=== PATIENT | female | born 1960 | race Caucasian/White ===

== ENCOUNTER 2017-01-24 11:30 | Inpatient (IN) | payer BC ==
[2017-01-24 11:52] LABS: Prothrombin Time 13.2 SEC (12.0-14.7)
[2017-01-24 11:53] LABS: PTT 18.3 SEC (22.9-36.1)
[2017-01-24 12:02] LABS: ALT (SGPT) 483 U/L (8-55); AST (SGOT) 526 U/L (5-34); Alkaline Phosphatase 118 U/L (40-150); Anion Gap 21 mmol/L (10-20); BUN (Urea Nitrogen) 15 mg/dL (9.8-20.1); Bilirubin, Total 0.4 mg/dL (0.2-1.2); CK (CPK) 235 U/L (29-168); Calc. Creatinine Clearance 0 mL/min (70-130); Calcium 9.4 mg/dL (7.8-10.44); Carbon Dioxide 21 mmol/L (22-29); Chloride 102 mmol/L (98-107); Estimated GFR-MDRD 44; Globulin 2.5 g/dL (2.4-3.5); Lipase 38 U/L (8-78); Protein, Total 6.6 g/dL (6.0-8.3)
[2017-01-24 12:03] LABS: Troponin I 0.144 ng/mL (< 0.028)
[2017-01-24 12:15] LABS: Hematocrit 40.6 % (36.0-47.0); Mean Platelet Volume 8.9 fL (7.4-10.4); Red Blood Cell (RBC) Count 4.07 mill/uL (4.20-5.40)
[2017-01-24] MEDS ORDERED: Heparin 10,000 UNITS/ 10 ML VIAL SLOW IVP SCH (12:15)
[2017-01-24] MEDS ORDERED: Heparin 25,000 units/D5W 500 ML IV SCH (12:15)
[2017-01-24 12:29] LABS: Band 11 % (5-11); Neutrophil 85 % (42-75); Toxic Granulation SLIGHT
[2017-01-24] MEDS ORDERED: Enoxaparin Sodium 80 MG/0.8 ML SYRINGE ONE (12:29)
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
[2017-01-24 13:49] LABS: Bilirubin Negative (Negative); Blood, Urine Small (Negative); Glucose, Urine (Dipstick) Negative (Negative); Ketone, Urine Negative (Negative); Nitrite Negative (Negative); Protein, Urine (Dipstick) 100 mg/dL (Neg-Trace); Urobilinogen 0.2 mg/dL (0.2-1.0)
[2017-01-24 13:51] LABS: Bacteria/HPF None Seen HPF (None Seen); Hyaline Casts/LPF 0-3 HYALINE CAST LPF (0-3 Hyaline); RBC/HPF 0-3 HPF (0-3); Squamous Epithelial 0-3 HPF (0-3); WBC/HPF 0-3 HPF (0-3)
[2017-01-24 14:00] LABS: Amphetamine Not Detected (NotDetected); Methadone Not Detected (NotDetected); Methamphetamine Not Detected (NotDetected)
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
--- NOTE | 2017-01-24 14:04 | RAD ---
CHEST 1 VIEW: Date: 01/24/17 HISTORY: Chest pain. COMPARISON: None. FINDINGS: Lungs are clear. No pneumothorax or effusion. Cardiac silhouette and mediastinal contours are normal . IMPRESSION: 1. No acute intrathoracic abnormality. 2. Density projecting over the left shoulder joint may be outside of patient, less likely a fractur e. Shoulder radiographs may be helpful. POS: [facility]
[2017-01-24] MEDS ORDERED: Mag-Al 1200 mg/1200 mg/30 ML UDCUP PO PRN (14:13)
[2017-01-24] MEDS ORDERED: Loperamide HCl 2 MG CAP PO PRN (14:13)
[2017-01-24] MEDS ORDERED: Loratadine 10 MG TAB PO PRN (14:13)
[2017-01-24] MEDS ORDERED: Artificial Tears 18 DROP/0.9 ML EA EYE PRN (14:13)
[2017-01-24] MEDS ORDERED: Ondansetron ODT 4 MG TAB PO PRN (14:13)
[2017-01-24] MEDS ORDERED: Eucerin (Mineral Oil/Petrolatum,White) 30 gm Jar TOP PRN (14:13)
[2017-01-24] MEDS ORDERED: Acetaminophen 325 MG TAB PO PRN (14:13)
[2017-01-24] MEDS ORDERED: Ondansetron HCl/PF 4 MG/2 ML Vial IVP PRN (14:13)
[2017-01-24] MEDS ORDERED: Milk Of Magnesia 30 ML UDCUP PO PRN (14:13)
[2017-01-24] MEDS ORDERED: Nitroglycerin 0.4 MG TAB (25 Tab Bottle) SL PRN (14:13)
[2017-01-24] MEDS ORDERED: Senokot 8.6 MG TAB PO PRN (14:13)
[2017-01-24] MEDS ORDERED: Diabetic Tussin 200 MG/10 ML UDCUP PO PRN (14:13)
[2017-01-24] MEDS ORDERED: Sodium Chloride 0.65% Nasal 44 ML BOT EA NARE PRN (14:13)
[2017-01-24] MEDS ORDERED: Zolpidem Tartrate 5 MG TAB PO PRN (14:13)
[2017-01-24 15:30] VITALS: BMI 30.3
[2017-01-24 15:35] LABS: Troponin I 12.564 ng/mL (< 0.028)
--- NOTE | 2017-01-24 15:40 | ULT ---
ULTRASOUND ABDOMEN LIMITED: (RIGHT UPPER QUADRANT) 01/24/17 HISTORY: 56-year-old female with elevated LFTs. FINDINGS: Gallbladder: Surgically absent. Common duct: Dilated up to 8 mm. Liver: Parenchymal echogenicity is normal. There is probably intrahepatic biliary ductal dilation. Pancreas: Poorly visualized. Right kidney: No hydronephrosis. IMPRESSION: 1. Status post cholecystectomy. 2. Dilation of the biliary tree. This could be due to reservoir effect because of the status po st cholecystectomy. Common bile duct obstruction can also have this appearance. Recommend correlatio n with bilirubin levels. JOVANNY Calix POS: [facility]
--- NOTE | 2017-01-24 15:59 | CT ---
CT ANGIOGRAM HEAD WITH CONTRAST CT ANGIOGRAM NECK WITH CONTRAST: Date: 01/24/17 Time: 1352 hours HISTORY: 56-year-old female status post syncope, becoming unresponsive, status post cardiopulmonary resuscita tion, including cardioversion. Dysarthria. Dr. Bland verbally gave this stroke alert protocol report by telephone to Dr. Marin at 1422 hours on 01/24/17. TECHNIQUE: IV contrast injection of Isovue. Arterial phase scan performed from bottom of lizbeth to vertex of scalp. Coronal and sagittal 3D MIP reconstructions of the head and neck. FINDINGS: There is air space density involving much of the apical segment of the right upper lobe. Aortic Arch: No dissection, aneurysm, or rupture. Brachiocephalic: Normal. Right Subclavian: Normal. Left Subclavian: Portions obscured by beam-hardening artifact from adjacent dense contrast bolus in the left subclavi an vein. Proximal portion normal. Right Common Carotid: Normal. Left Common Carotid: Normal. Right Vertebral: Normal. Left Vertebral: Normal. Cervical Right Internal Carotid: Tiny calcified plaque at origin. No stenosis. Otherwise normal. Cervical Left Internal Carotid: Normal. Carotid Siphons: Mild calcified plaque at supraclinoid carotids bilaterally. No high grade stenosis identified. Bilateral Middle Cerebrals: No high grade stenosis or occlusion identified involving M1 segments and proximal branches of trifur cations. Anterior Cerebrals: No high grade stenosis or occlusion identified involving A1 and A2 segments bilaterally. Posterior Circulation: No high grade stenosis or occlusion identified. There is no evidence for intracranial aneurysm. No evidence of dural venous sinus thrombosis. There is a 9 mm coarse calcification in the left lobe of thyroid gland. There are high grade degenerative facet changes bilaterally in the C-spine. IMPRESSION: 1. Major intracranial arteries and major arteries of the neck are essentially normal. 2. Moderately large region of air space density and ground-glass changes in the apical segment of t he right upper lobe. Given the history, this probably represents aspiration pneumonitis. CODE CR. POS: [facility]
[2017-01-24] MEDS: Sodium Chloride 0.9% 1,000 ML IV SCH ×2 (16:11→21:52)
[2017-01-24] MEDS ORDERED: ISOVUE-370 76%-LOCM 1 ML ONE (16:48)
[2017-01-24] MEDS ORDERED: Communication Order-Pharmacy FS SCH (17:00)
[2017-01-24 18:12] LABS: Troponin I 23.697 ng/mL (< 0.028)
[2017-01-24] MEDS ORDERED: Enoxaparin Sodium 80 MG/0.8 ML SYRINGE SC SCH (21:00)
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
[2017-01-24] MEDS: Metoprolol Tartrate 25 MG TAB PO SCH (21:51)
[2017-01-24] MEDS: Famotidine 20 MG TAB PO SCH (21:51)
[2017-01-25] MEDS: HYDROcodone/Acetaminophen 5/325 mg Tablet PO PRN ×3 (00:04→16:18)
[2017-01-25 05:06] LABS: ALT (SGPT) 284 U/L (8-55); AST (SGOT) 282 U/L (5-34); Alkaline Phosphatase 63 U/L (40-150); Anion Gap 10 mmol/L (10-20); BUN (Urea Nitrogen) 11 mg/dL (9.8-20.1); Bilirubin, Total 0.6 mg/dL (0.2-1.2); CK (CPK) 2044 U/L (29-168); Calc. Creatinine Clearance 86 mL/min (70-130); Calcium 8.2 mg/dL (7.8-10.44); Carbon Dioxide 24 mmol/L (22-29); Chloride 109 mmol/L (98-107); Cholesterol 151 mg/dl (< 200 Desired); Estimated GFR-MDRD 67; Globulin 2.2 g/dL (2.4-3.5); LDL Cholesterol, Calculated 83 mg/dL; Protein, Total 5.4 g/dL (6.0-8.3)
[2017-01-25 05:20] LABS: Critical Call CKMBM RESULT DECREASING; Critical Call Chem Troponin I RESULT DECREASING
[2017-01-25 05:27] LABS: #Eosinphils 0.1 thou/uL (0.0-0.7); #Lymphocytes 1.5 thou/uL (1.20-3.40); #Monocytes 0.5 thou/uL (0.11-0.59); #Neutrophils 6.8 thou/uL (1.40-6.50); %Basophils 0.2 % (0.0-1.0); %Eosinophils 1.4 % (0.0-10.0); %Lymphocytes 16.5 % (21.0-51.0); %Monocytes 5.7 % (0.0-10.0); Hematocrit 34.5 % (36.0-47.0); Mean Platelet Volume 8.7 fL (7.4-10.4); Red Blood Cell (RBC) Count 3.43 mill/uL (4.20-5.40); White Blood Cell (WBC) Count 8.9 thou/uL (4.8-10.8)
[2017-01-25] MEDS ORDERED: Famotidine/PF 20 mg/2ml Vial IVP SCH (06:00)
[2017-01-25] MEDS ORDERED: Diazepam 5 MG TAB PO SCH (06:00)
[2017-01-25] MEDS: Famotidine 20 MG TAB PO SCH (06:12)
[2017-01-25] MEDS: Metoprolol Tartrate 25 MG TAB PO SCH (06:13)
[2017-01-25] MEDS ORDERED: Aspirin 325 MG TAB PO SCH (09:00)
[2017-01-25] MEDS: Sodium Chloride 0.9% 1,000 ML IV SCH (10:33)
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
[2017-01-25] MEDS ORDERED: Heparin 10,000 UNITS/1 ML VIAL ONE ×2 (11:13→11:25)
[2017-01-25] MEDS ORDERED: Nitroglycerin 100MG/250ML BOT 250 ML ONE (11:13)
[2017-01-25] MEDS ORDERED: Fentanyl 100 MCG/2 ML VIAL ONE (11:14)
[2017-01-25] MEDS ORDERED: Midazolam HCl 2 mg/2 ml Vial ONE (11:14)
[2017-01-25] MEDS ORDERED: TICAGRELOR 90 MG TABLET ONE (11:26)
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
[2017-01-25] MEDS ORDERED: diphenhydrAMINE HCl/Zinc Acet 2% Cream 28.4 gm Tube TOP PRN (14:29)
[2017-01-25 17:09] VITALS: TEMP 98
[2017-01-25 18:36] VITALS: BP 131/80
[2017-01-25] MEDS ORDERED: Carvedilol 3.125 MG TAB PO SCH (21:00)
[2017-01-25] MEDS ORDERED: Atorvastatin Calcium 20 MG TAB PO SCH (21:00)
[2017-01-25] MEDS ORDERED: TICAGRELOR 90 MG TABLET PO SCH (21:00)
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
== END 2017-01-25 18:30 | disposition home or self-care (01) | DRG 246 ==
LOC: ERS 11:30 → EDBD 11:30 → IMCU/EMU 15:24
PROVIDERS: ADMIT Internal Medicine; ATTEND Internal Medicine
PROC: 027034Z Dilation of Coronary Artery, One Artery with Drug-eluting Intraluminal Device, Percutaneous Approach (ICD-10-PCS; principal; 2017-01-25)
PROC: 4A023N7 Measurement of Cardiac Sampling and Pressure, Left Heart, Percutaneous Approach (ICD-10-PCS; 2017-01-25)
PROC: B2111ZZ Fluoroscopy of Multiple Coronary Arteries using Low Osmolar Contrast (ICD-10-PCS; 2017-01-25)
PROC: B2151ZZ Fluoroscopy of Left Heart using Low Osmolar Contrast (ICD-10-PCS; 2017-01-25)
DX: I21.4 Non-ST elevation (NSTEMI) myocardial infarction (principal); I46.2 Cardiac arrest due to underlying cardiac condition; N17.0 Acute kidney failure with tubular necrosis; E87.2 Acidosis; M62.82 Rhabdomyolysis; I95.9 Hypotension, unspecified; G45.9 Transient cerebral ischemic attack, unspecified; I49.9 Cardiac arrhythmia, unspecified; I25.10 Atherosclerotic heart disease of native coronary artery without angina pectoris; I10 Essential (primary) hypertension; E03.9 Hypothyroidism, unspecified; Z88.2 Allergy status to sulfonamides; R74.0 Nonspecific elevation of levels of transaminase and lactic acid dehydrogenase [LDH]
CPT/HCPCS: 36415; 70450; 70496; 70498; 71010; 76705; 80053; 80061; 80074; 80306; 81003; 81015; 82550; 82553; 83690; 83735; 84443; 84484; 85025; 85610; 85730; 92928; 93005; 93010; 93306; 93458; 93798; 96360; 96372; 99152; C1769; C1874; C1887; C9600; J1644; J1650; J2250; J3010